=== PATIENT | female | born 1970 | race Caucasian/White ===

== ENCOUNTER → 2024-03-29 13:03 | Outpatient (REF) | payer BC, SELFPAY | LOC: HWEVLT 13:03 | PROVIDERS: ATTENDING PHYSICIAN Radiology Vascular & Interventional Radiology | DX: I83.893 Varicose veins of bilateral lower extremities with other complications (principal) | CPT/HCPCS: 93970 ==

== ENCOUNTER → 2024-05-16 09:31 | Outpatient (REF) | payer BC, SELFPAY | LOC: HWEVLT 09:31 | PROVIDERS: ATTENDING PHYSICIAN Radiology Vascular & Interventional Radiology | DX: I83.891 Varicose veins of right lower extremity with other complications (principal) | CPT/HCPCS: 36478; C1769 ==

== ENCOUNTER → 2024-05-25 11:22 | Outpatient (REF) | payer BC, SELFPAY | LOC: HWEVLT 11:22 | PROVIDERS: ATTENDING PHYSICIAN Radiology Vascular & Interventional Radiology | DX: I83.891 Varicose veins of right lower extremity with other complications (principal) | CPT/HCPCS: 93971 ==